=== PATIENT | female | born 1995 | race Caucasian/White ===

== ENCOUNTER 2017-09-08 22:13 | Emergency (ER) | payer BC ==
--- NOTE | 2017-09-08 23:05 | RAD ---
LEFT ELBOW: 09/08/17 Four views. HISTORY: Left elbow pain. No evidence of fracture. No evidence of joint effusion. IMPRESSION: No acute findings. POS: [facility]
--- NOTE | 2017-09-08 23:06 | RAD ---
LEFT HIP TWO VIEWS: 09/08/17 HISTORY: 22-year-old female with left hip pain. IMPRESSION: No fracture, dislocation or other acute process. POS: [facility]
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
[2017-09-08] MEDS ORDERED: Acetaminophen 500 MG TAB ONE (23:54)
[2017-09-09] MEDS ORDERED: Ketorolac Tromethamine 30 MG/ML VIAL ONE (00:24)
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
== END 2017-09-09 01:19 | disposition home or self-care (01) ==
LOC: ERS 22:13
DX: S70.212A Abrasion, left hip, initial encounter (principal); S70.211A Abrasion, right hip, initial encounter; F31.9 Bipolar disorder, unspecified; F90.9 Attention-deficit hyperactivity disorder, unspecified type; Z79.899 Other long term (current) drug therapy; V43.52XA Car driver injured in collision with other type car in traffic accident, initial encounter
CPT/HCPCS: 71045; 96372; J1885